=== PATIENT | female | born 1955 | race Caucasian/White ===

== ENCOUNTER → 2016-11-25 | Outpatient (CLI) | payer BC | LOC: MC.RAD 10:40 | DX: Z12.31 Encounter for screening mammogram for malignant neoplasm of breast (principal) ==

== ENCOUNTER → 2017-12-17 | Outpatient (CLI) | payer BC | LOC: MC.RAD 08:20 | DX: Z12.31 Encounter for screening mammogram for malignant neoplasm of breast (principal) ==

== ENCOUNTER → 2018-12-21 | Outpatient (CLI) | payer BC | LOC: MC.RAD 08:15 | DX: Z12.31 Encounter for screening mammogram for malignant neoplasm of breast (principal) ==

== ENCOUNTER → 2020-03-27 | Outpatient (CLI) | payer BC | LOC: MC.RAD 09:20 | DX: Z12.31 Encounter for screening mammogram for malignant neoplasm of breast (principal) ==

== ENCOUNTER → 2021-04-23 | Outpatient (CLI) | payer BC | LOC: MC.RAD 11:30 | DX: Z12.31 Encounter for screening mammogram for malignant neoplasm of breast (principal) ==

== ENCOUNTER → 2022-05-13 | Outpatient (CLI) | payer BC | LOC: MC.RAD 09:13 | DX: Z12.31 Encounter for screening mammogram for malignant neoplasm of breast (principal) ==

== ENCOUNTER → 2023-05-17 | Outpatient (CLI) | payer BC | LOC: MC.RAD 13:15 | DX: Z12.31 Encounter for screening mammogram for malignant neoplasm of breast (principal) ==

== ENCOUNTER 2024-04-03 09:25 | Day surgery (SDC) | payer BC ==
[~2024-04-03] VITALS: Ht 156.2 cm; Wt 59.6 kg
[~2024-04-03 09:25] MED LIST: LR 1,000 ML IV SCH; Ondansetron 4 MG/2 ML VIAL IV PRN
[2024-04-03 09:40] VITALS: BP 130/55; PULSE 57; TEMP 97.6
[2024-04-03] MEDS ORDERED: TOPROL XL 25MG25 MG PO (09:45)
[2024-04-03] MEDS ORDERED: ESTRACE 1MG1 MG/TAB PO (09:45)
[2024-04-03] MEDS ORDERED: MASON NATURAL2000 IU PO (09:46)
[2024-04-03] MEDS ORDERED: INDERAL 10MG10 MG PO (09:46)
[2024-04-03] MEDS ORDERED: ZYRTEC 10MG10 MG PO (09:46)
[2024-04-03] MEDS ORDERED: FLONASEALLERGY NS (09:47)
[2024-04-03] MEDS ORDERED: PROBICHEW 21 B1 EACH PO (09:47)
[2024-04-03] MEDS ORDERED: TUMS500 MG PO (09:48)
[2024-04-03] MEDS ORDERED: COLACE 100100 MG/CAP PO (09:48)
--- NOTE | 2024-04-03 10:12 | NUR ---
The patient ambulated back to [place] [facility] indpendently using a steady gait and appeared to tolerate the activity well. Vital signs obtained. Consent signed. 20G IV started in right wrist with LR infusing without difficulty. Assessment completed. Home medications reconcilled. Warm blanket provided. was brought back to be at her bedside. Denies any further needs at this time.
[2024-04-03 10:58] VITALS: TEMP 98
[2024-04-03 11:10] VITALS: BP 124/67; PULSE 55
[2024-04-03 11:20] VITALS: BP 112/65; PULSE 56
[2024-04-03 11:30] VITALS: BP 117/73; PULSE 59
--- NOTE | 2024-04-03 15:08 | NUR ---
1110 PATIENT RETURNS TO [facility] VIA CART. PT AWAKE AND ALERT. RESPIRATIONS UNLABORED. AMBULATED TO RECLINER CHAIR WITH 2:1 SBA. PT DENIES NAUSEA OR ABDOMINAL PAIN. HOOKED UP TO MONITOR AND VS OBTAINED. CALL LIGHT AT SIDE AND PRESENT. 1120 PATIENT TOLERATING WATER AND SALTINES WITHOUT NAUSEA OR DIFFICULTY SWALLOWING (EGD ONLY). 1130 IN ROOM SPEAKING WITH PATIENT. 1140 D/C INSTRUCTIONS REVIEWED WITH PATIENT. PT VERBALIZED UNDERSTANDING AND A COPY OF INSTRUCTIONS PROVIDED IN D/C FOLDER. 1150 PATIENT DRESSES SELF. 1200 PATIENT DISCHARGED FROM UNIT VIA W/C TO A PERSONAL VEHICLE. PT LEFT HOSPITAL IN STABLE CONDITION.
== END 2024-04-03 12:00 | disposition home or self-care (01) ==
LOC: SDCO 09:25
DX: Z12.11 Encounter for screening for malignant neoplasm of colon (principal); K64.0 First degree hemorrhoids
CPT/HCPCS: J2704; J7120

== ENCOUNTER → 2024-06-07 | Outpatient (CLI) | payer BC ==
[~2024-06-07] MED LIST changes: +COLACE 100100 MG/CAP PO; +ESTRACE 1MG1 MG/TAB PO; +FLONASEALLERGY NS; +INDERAL 10MG10 MG PO; -LR 1,000 ML IV SCH; +MASON NATURAL2000 IU PO; -Ondansetron 4 MG/2 ML VIAL IV PRN; +PROBICHEW 21 B1 EACH PO; +TOPROL XL 25MG25 MG PO; +TUMS500 MG PO; +ZYRTEC 10MG10 MG PO
== END ==
LOC: MC.RAD 11:29
DX: Z12.31 Encounter for screening mammogram for malignant neoplasm of breast (principal); R92.1 Mammographic calcification found on diagnostic imaging of breast